=== PATIENT | male | born 1980 | race African-American/Black ===

== ENCOUNTER 2017-05-31 21:34 | Emergency (ER) | payer SELFPAY, OTHER ==
[2017-05-31 22:09] LABS: #Basophils 0.1 thou/uL (0.0-0.2); #Monocytes 0.4 thou/uL (0.11-0.59); #Neutrophils 7.5 thou/uL (1.40-6.50); %Basophils 0.6 % (0.0-1.0); %Eosinophils 0.3 % (0.0-10.0); %Monocytes 4.1 % (0.0-10.0); %Neutrophils 75.1 % (42.0-75.0); Hemoglobin 16.6 g/dL (14.0-18.0); Mean Corpuscular HGB CONC 33.7 g/dL (32.0-36.0); Mean Corpuscular Hemoglobin 31.4 pg (27.0-31.0); Mean Corpuscular Volume 92.9 fl (80.0-94.0); Mean Platelet Volume 8.1 fL (7.4-10.4); Platelet Count 234 thou/uL (130-400); RBC Distribution Width 12.3 % (11.5-14.5); White Blood Cell (WBC) Count 9.9 thou/uL (4.8-10.8)
[2017-05-31 22:27] LABS: ALT (SGPT) 20 U/L (8-55); AST (SGOT) 21 U/L (5-34); Albumin 5.1 g/dL (3.5-5.0); Alkaline Phosphatase 87 U/L (40-150); Anion Gap 17 mmol/L (10-20); BUN (Urea Nitrogen) 12 mg/dL (8.9-20.6); Bilirubin, Total 0.9 mg/dL (0.2-1.2); Calc. Creatinine Clearance 0 mL/min (70-130); Calcium 10.8 mg/dL (7.8-10.44); Carbon Dioxide 25 mmol/L (22-29); Chloride 103 mmol/L (98-107); Estimated GFR-MDRD 58; Globulin 3.6 g/dL (2.4-3.5); Glucose 126 mg/dL (70-105); Lipase 7 U/L (8-78); Potassium 3.7 mmol/L (3.5-5.1); Protein, Total 8.7 g/dL (6.0-8.3); Sodium 141 mmol/L (136-145)
[2017-05-31] MEDS ORDERED: Promethazine HCl 25 MG/ML VIAL ONE (23:02)
== END 2017-06-01 00:06 | disposition home or self-care (01) ==
LOC: ERS 21:34
DX: K29.00 Acute gastritis without bleeding (principal); I10 Essential (primary) hypertension
CPT/HCPCS: 80053; 83690; 85025; 96361; 96374; 96375; J2550

== ENCOUNTER 2017-12-31 15:32 | Emergency (ER) | payer SELFPAY ==
[2017-12-31] MEDS ORDERED: cefTRIAXone\\ROCEPHIN 250 MG VIAL ONE (16:46)
[2017-12-31] MEDS ORDERED: Lidocaine 1% PF 5 ML VIAL ONE (16:46)
[2017-12-31] MEDS ORDERED: Azithromycin 250 MG TAB ONE (16:50)
== END 2017-12-31 17:08 | disposition home or self-care (01) ==
LOC: ERS 15:32
DX: R36.9 Urethral discharge, unspecified (principal); Z20.2 Contact with and (suspected) exposure to infections with a predominantly sexual mode of transmission; I10 Essential (primary) hypertension
CPT/HCPCS: 87491; 87591; 96372; J0696; J2001

== ENCOUNTER 2019-07-29 21:14 | Emergency (ER) | payer SELFPAY ==
[2019-07-29] MEDS ORDERED: Ondansetron ODT 4 MG TAB ONE (21:42)
== END 2019-07-29 22:16 | disposition left against medical advice (07) ==
LOC: ERS 21:14
DX: Z53.21 Procedure and treatment not carried out due to patient leaving prior to being seen by health care provider (principal)
CPT/HCPCS: Q0162

== ENCOUNTER 2020-03-10 12:00 | Observation (INO) | payer SELFPAY ==
[2020-03-10] MEDS ORDERED: Piperacillin/Tazobactam 3.375 GM in Sodium Chloride 0.9% 100 ML IVPB SCH (15:00)
[2020-03-10 15:05] VITALS: BMI 30.4
[2020-03-10] MEDS ORDERED: Ondansetron ODT 4 MG TAB SL PRN (15:15)
[2020-03-10] MEDS ORDERED: Acetaminophen 325 MG TAB PO PRN ×2 (15:15→15:45)
[2020-03-10] MEDS ORDERED: Sodium Chloride 0.9% 1,000 ML IV SCH (15:15)
[2020-03-10] MEDS ORDERED: Ondansetron PF 4 MG/2 ML Vial IVP PRN ×2 (15:15→15:45)
--- NOTE | 2020-03-10 15:22 | PDOC.FPRHP ---
- History of Present Illness Chief Complaint: nausea/vomiting/diarrhea History of Present Illness: 39yo AAM with h/o HTN and THC use presents for intractable nausea and vomiting with associated diarrhea for 1 week. Patient states he ate re-heated leftovers last Friday 03/03, subsequently developed n/v and presented to ED, given zofran and discharged. Since that time he has had intermittent n/v with any trial of PO intake. Endorses chills and diaphoresis with no fever. Endorses 2 episodes of dark diarrhea, non-bloody. Emesis non-bloody. Associated epigastric pain after vomiting. Denies CP, SOB, ASHLEY, vision changes, loss of taste or smell, cough, congestion. States meds in ED improved sxs. No other recent illness or antibiotic use. Patient also states he was a daily to multiple times per day THC user until ons et of sxs. He previously noted that he would smoke after meals thinking this would help "settle his stomach" but instead, lately, would have nausea and vomiting improved with hot showers and worsened with continued THC use. States he takes 6+ showers a day and these help tremendously. ED Course: Presented to ED 03/04 with similar sxs. This presentation given Vanc and Zosyn. Hydralazine 10mg and Labetolol. Given Benadryl, reglan, and asa. 2L NS. 40meq KCL. Sxs improved and able to tolerate PO - Allergies/Adverse Reactions Allergies Allergy/AdvReac Type Severity Reaction Status Date / Time No Known Allergies Allergy Unverified 03/10/20 15:01 - Home Medications Medication Instructions Recorded Confirmed Type Amlodipine [Norvasc] 10 mg PO DAILY 03/10/20 03/10/20 History Hydrochlorothiazide 12.5 mg PO DAILY #30 tab 03/11/20 Rx - History PMHx: HTN PSHx: None FHx: Mother with Diabetes. Father with stomach cancer and stomach ulcers. Social: Daily THC use prior to onset of sxs approx 1 week ago and no use since. No etOH and no other drug use. - Review of Systems General: reports: fever/chills, weight/appetite/sleep changes (decreased appetite). denies: night sweats, fatigue Eyes: denies: vision changes ENT: denies: nasal congestion, rhinorrhea Respiratory: denies: cough, congestion, shortness of breath Cardiovascular: denies: chest pain, edema Gastrointestinal: reports: nausea, vomiting, diarrhea, abdominal pain. denies: GI bleeding Genitourinary: denies: incontinence, dysuria Skin: denies: rashes Musculoskeletal: denies: pain - Vital signs 88kg Selected Entries 03/10/20 14:40 Temperature 98.6 F Pulse Rate 79 Blood Pressure 163/109 H [Semi-Fowlers] Respiratory 18 Rate O2 Sat by Pulse 100 Oximetry Oxygen Delivery Room Air Method - Physical Exam Constitutional: NAD, awake, alert and oriented, well developed, other (finishing lunch, good spirits) HEENT: PERRLA, EOMI, no scleral icterus, MMM Neck: supple, trachea midline Chest: no-tender to palpation Heart: RRR, normal S1/S2, no murmurs/rubs/gallops, no edema Lungs: CTAB, no respiratory distress, good air movement, no rales/rhonchi, no wheezing Abdomen: soft, bowel sounds present, other (mild epigastric and LLQ tenderness to moderate palpation. No rebound or guarding.) Musculoskeletal: normal structure, normal tone Neurological: no focal deficit Skin: no rash/lesions Heme/Lymphatic: no unusual bruising or bleeding Psychiatric: normal mood and affect, good judgment and insight, intact recent and remote memory FMR H&P: Results - Labs Result Diagrams: 03/11/20 04:00 - EKG Interpretation EKG: NSR, no acute T wave or ST Changes - Radiology Interpretation CT scan - abdomen Status: report reviewed by me (No acute findings) FMR H&P: A/P - Problem List (1) Intractable nausea and vomiting Status: Acute Code(s): R11.2 - NAUSEA WITH VOMITING, UNSPECIFIED - Plan 39yo AAM with h/o HTN and THC use presents for intractable nausea and vomiting with associated diarrhea for 1 week. #Nausea/Vomiting/Diarrhea, suspected viral gastroenteritis vs Cannabis hyperemesis syndrome - Onset of sxs 03/03 after eating re-heated leftovers, worsening sxs today - unlikely food bourne illness due to time course - no recent travel or known sick contacts or recent illness/abx use - Minimal PO intake 2/2 sxs x1 week - Tachy in ED, resolved - WBC 11.3, afebrile. UA clean. - UDS + opiates and THC - Lipase negative - low suspicion for pancreatitis - CT abd/pelvis: no acute findings - s/p Vanc and Zosyn in ED, will hold further abx as no sxs of acute bacterial illness - Check procal - Admission COVID screen pending - Tolerating PO intake now, monitor and adv as tolerated - prn Zofran #THC use - daily use prior to onset of sxs - likely contributing to above. Possible cannabis hyperemesis syndrome - Capsacin cream TID to abd - monitor sxs - counseled on cessation, patient understanding and agreeable #Elevated Troponin - Likely 2/2 RANJAN - No heart history or ACS sxs - Trop 0.047, 0.053, 0.042 - EKG no acute changes - Monitor on tele #Hypokalemia 2/2 GI losses - K 2.8, given K in ED - Will recheck BMP and replace as indicated. Check Mag. #RANJAN - Cr 1.83, likely 2/2 poor PO intake - s/p 2L NS in ED, will cont LR @ 120cc/hr #Lactic Acidosis, resolved - LA 2.7 -> 1.8 s/p fluids - 2/2 above #HTN Urgency - h/o chronic HTN - restart home Norvasc - monitor PCP: None Code: Full IVF: LR @ 120cc/hr Diet: Regular VTE: None- low risk Disposition/LOS: Admit to tele obs for n/v/d. Monitor and replace lytes. Sxs management. Anticipate LOS < 48hrs. FMR H&P: Upper Level - Plan Date/Time: 03/10/20 1522 I, [], have evaluated this patient and agree with findings/plan as outlined by it intern resident. Pertinent changes/additions are listed here. Addendum - Attending - Attending Attestation Date/Time: 03/11/20 1643 I personally evaluated the patient and discussed the management with Dr. Mujica. I agree with the History, Examination, Assessment and Plan documented above with any addition or exceptions noted below. Seem to be a clear case of cannabinoid hyperemesis. Expectant management. Monitor creatinine. Has had no chest pain or shortness of breath. Regularly runs and lifts weights without issue.
[2020-03-10] MEDS ORDERED: Ondansetron ODT 4 MG TAB PO PRN (15:45)
[2020-03-10] MEDS ORDERED: Calcium Carbonate 500 MG ChewTAB PO PRN (15:45)
[2020-03-10] MEDS ORDERED: Amlodipine 10 MG TAB PO SCH (16:00)
[2020-03-10] MEDS: Lactated Ringer's 1,000 ML IV SCH (16:17)
[2020-03-10 17:20] LABS: Anion Gap 12 mmol/L (10-20); BUN (Urea Nitrogen) 14 mg/dL (8.9-20.6); Calc. Creatinine Clearance 104 mL/min (70-130); Calcium 8.9 mg/dL (7.8-10.44); Carbon Dioxide 26 mmol/L (22-29); Chloride 104 mmol/L (98-107); Glucose 121 mg/dL (70-105); Potassium 3.2 mmol/L (3.5-5.1); Sodium 139 mmol/L (136-145)
[2020-03-10] MEDS ORDERED: Potassium Chloride 20 MEQ TAB PO SCH (18:15)
[2020-03-10] MEDS: Capsaicin 0.025% Cream 60 gm Tube TOP SCH (23:18)
[2020-03-11] MEDS: Lactated Ringer's 1,000 ML IV SCH (01:12)
[2020-03-11 04:44] LABS: Anion Gap 12 mmol/L (10-20); BUN (Urea Nitrogen) 11 mg/dL (8.9-20.6); Calc. Creatinine Clearance 113 mL/min (70-130); Calcium 8.8 mg/dL (7.8-10.44); Carbon Dioxide 26 mmol/L (22-29); Chloride 107 mmol/L (98-107); Glucose 91 mg/dL (70-105); Potassium 3.7 mmol/L (3.5-5.1); Sodium 141 mmol/L (136-145)
--- NOTE | 2020-03-11 06:21 | PDOC.FM ---
- Subjective Subjective: Much improved this morning. Tolerating PO well without any n/v. Did have a 1-2 more episodes of loose stools, nonbloody. Hot showers still relieve mild nausea. Eager for discharge home. No fever/chills, CP, SOB, abd pain. - Objective MAR Reviewed: Yes Vital Signs & Weight: Vital Signs (12 hours) Temp Pulse Resp BP Pulse Ox 03/10/20 20:00 99.0 F 98 20 164/79 H 97 Weight Weight 88.269 kg Result Diagrams: 03/11/20 04:00 Phys Exam - Physical Examination Constitutional: NAD (sitting in bed, good spirits) HEENT: moist MMs Neck: supple Respiratory: no wheezing, no rales, no rhonchi, clear to auscultation bilateral Cardiovascular: RRR, no significant murmur Gastrointestinal: soft, non-tender, no distention, positive bowel sounds Musculoskeletal: no edema Neurological: moves all 4 limbs Psychiatric: normal affect, A&O x 3 Skin: no rash Dx/Plan (1) Intractable nausea and vomiting Code(s): R11.2 - NAUSEA WITH VOMITING, UNSPECIFIED Status: Acute - Plan Plan: 39yo AAM with h/o HTN and THC use presents for intractable nausea and vomiting with associated diarrhea for 1 week. #Cannabis hyperemesis syndrome - Onset of sxs 03/03 after eating re-heated leftovers, worsening sxs today - unlikely food bourne illness due to time course - no recent travel or known sick contacts or recent illness/abx use - Minimal PO intake 2/2 sxs x1 week - Tachy in ED, resolved - WBC 11.3, afebrile. UA clean. Procal negative. - UDS + opiates and THC - Lipase negative - low suspicion for pancreatitis - CT abd/pelvis: no acute findings - s/p Vanc and Zosyn in ED, will hold further abx as no sxs of acute bacterial illness - Admission COVID screen pending - Tolerating PO intake now, no further sxs - daily THC use prior to onset of sxs - counseled on cessation, patient understanding and agreeable #Elevated Troponin, stable - Likely 2/2 RANJAN - No heart history or ACS sxs - Trop 0.047, 0.053, 0.042 - EKG no acute changes - No acute events on tele #Hypokalemia 2/2 GI losses, resolved - replaced. Mg WNL. #RANJAN, resolved - Cr 1.83 -> 1.12, likely 2/2 poor PO intake - s/p IVF, will d/c this AM #Lactic Acidosis, resolved - LA 2.7 -> 1.8 s/p fluids - 2/2 above #HTN Urgency - h/o chronic HTN - restart home Norvasc, addition of HCTZ as BP still elevated - Will need continued Outpt follow up and to establish with PCP - plans to see [facility] PCP: None Code: Full IVF: SL Diet: Regular VTE: None- low risk Disposition/LOS: Admitted to tele obs for Cannabis hyperemesis syndrome. Sxs resolved. Metabolic derangements resolved. Anticipate discharge today Addendum - Attending - Attending Attestation Date/Time: 03/11/20 [id number] I personally evaluated the patient and discussed the management with Dr. Mujica I agree with the History, Examination, Assessment and Plan documented above with any addition or exceptions noted below - Patient feeling much better. Tolerating diet with no difficulties. Afebrile VSS A/P: 1) Cannabis hyperemesis syndrome- improved. 2) HTN- started on BP meds; will need close follow-up. Stable for discharge,
[2020-03-11] MEDS ORDERED: Amlodipine 10 MG TAB PO SCH (09:00)
[2020-03-11] MEDS ORDERED: Hydrochlorothiazide 25 MG TAB PO SCH (09:00)
[2020-03-11] MEDS: Capsaicin 0.025% Cream 60 gm Tube TOP SCH (09:12)
[2020-03-11 11:02] VITALS: BP 162/97; TEMP 98.4
[2020-03-11 13:43] LABS: SARS-CoV-2 PCR by NAA Not Detected (NotDetected)
[2020-03-11] MEDS ORDERED: FLU VACC QS2020-21(6MOS UP)/PF 60 MCG/0.5 ML SYRINGE IM ONE (15:45)
--- NOTE | 2020-03-12 04:08 | DIS ---
DATE OF ADMISSION: 03/10/2020 DATE OF DISCHARGE: 03/11/2020 RESIDENT: Nitesh Mujica MD ADMITTING ATTENDING: Carlos Pedersen MD DISCHARGE ATTENDING: Jaz Gallo MD CONSULTS: None. PROCEDURES: Abdomen and pelvis CT performed on 03/09/2020, demonstrating no acute findings of the abdomen or pelvis. PRIMARY DIAGNOSES: 1. Cannabinoid hyperemesis syndrome. 2. Elevated troponin. 3. Acute kidney injury, resolved. SECONDARY DIAGNOSES: 1. Hypokalemia secondary to gastrointestinal losses, resolved. 2. Lactic acidosis, resolved. 3. Hypertensive urgency, resolved. 4. Chronic hypertension. DISCHARGE MEDICATIONS: 1. Norvasc 10 mg p.o. daily. 2. Hydrochlorothiazide 12.5 mg p.o. daily. HISTORY OF PRESENT ILLNESS/HOSPITAL COURSE: The patient is a pleasant 39-year-old male with past medical history of hypertension and daily THC use, who presented for intractable nausea and vomiting with associated diarrhea for 1 week. He was seen in the emergency department approximately a week ago after eating reheated leftovers and thought he had food poisoning. He was given some Zofran and ultimately discharged home. At that time, he had intermittent nausea and vomiting with a trial p.o. intake. He endorsed chills and diaphoresis with no fever. He had a few episodes of dark diarrhea that was nonbloody and his emesis was also nonbloody. He also had associated epigastric pain post emesis. He denied any chest pain, shortness of breath, headaches, vision changes, loss of taste or smell, cough, or congestion. He also states he smokes marijuana daily and had previously noted that he would smoke after meals to "settle his stomach," but instead of late would have worse nausea and vomiting that would improve with hot showers and worsen with continued marijuana use. He states he takes approximately six or more showers a day and these helped initially. In the emergency department, he was given vancomycin, Zosyn, hydralazine, labetalol, Benadryl, Reglan, aspirin, fluid bolus, and had improvement of his symptoms and was ultimately directly admitted to [facility] for further evaluation and management. Once on the floor, the patient had no return of nausea, vomiting, or abdominal pain. His white blood cell count and procal were negative and no evidence of bacterial illness and thus no antibiotics were continued. Lipase was negative and thus low suspicion for pancreatitis. His UDS was positive for opiates and THC. Tachycardia resolved. COVID test was negative. Overnight, he tolerated p.o. well without any return of symptoms, taking multiple hot showers, but continued to improve. The patient was counseled extensively on cessation of marijuana use as his presentation was very consistent with cannabinoid hyperemesis syndrome. The patient voiced agreement and understanding and stated that he will no longer use marijuana. The patient also had elevated troponin, likely secondary to his RANJAN. His troponins were trended and stable. He was monitored on telemetry without any acute changes and EKG showed normal sinus rhythm without any acute ST or T-wave changes. He also had a mild hypokalemia that was replenished and RANJAN, that resolved with IV fluids. He also had a mild lactic acidosis that resolved with IV fluids. The patient had hypertensive urgency in the setting of chronic hypertension. He was given p.r.n. medications and additional hydrochlorothiazide with improvement in his blood pressure. The patient was instructed that he need to follow with his primary care physician for continued management of his blood pressure. At the time of discharge, the patient was ambulatory, tolerating p.o. well without any nausea, vomiting, or abdominal pain. He was very eager to be discharged home. The patient was again counseled extensively on cessation from marijuana use and the patient voiced agreement and understanding of discharge plan and appropriate followup. All questions were answered. The patient was then discharged home. DISPOSITION: Stable. DISCHARGE INSTRUCTIONS: 1. Location: Home. 2. Diet: Regular as tolerated. 3. Activity: As tolerated. 4. Followup: The patient is to follow up with primary care physician within one week of discharge. Job ID: [id number]
== END 2020-03-11 11:45 | disposition home or self-care (01) ==
LOC: 2NO 12:00 → INTOOBSV 12:00
PROVIDERS: ADMIT Emergency Medicine; ATTEND Emergency Medicine
DX: R11.2 Nausea with vomiting, unspecified (principal); F12.90 Cannabis use, unspecified, uncomplicated; R77.8 Other specified abnormalities of plasma proteins; N17.9 Acute kidney failure, unspecified; R19.7 Diarrhea, unspecified; E87.6 Hypokalemia; E87.2 Acidosis; I16.0 Hypertensive urgency; I10 Essential (primary) hypertension; Z79.899 Other long term (current) drug therapy; Z20.822 Contact with and (suspected) exposure to COVID-19
CPT/HCPCS: 36415; 80048; 83735; 84145; 84443; 87635; G0378; U0003; U0005

== ENCOUNTER 2020-12-23 02:18 | Emergency (ER) | payer SELFPAY | END 2020-12-23 04:30 | disposition home or self-care (01) | LOC: ERS 02:18 | DX: R10.13 Epigastric pain (principal); R11.2 Nausea with vomiting, unspecified; I10 Essential (primary) hypertension | CPT/HCPCS: 76705 ==

== ENCOUNTER 2021-04-23 14:00 | Emergency (ER) | payer OTHER, SELFPAY ==
[2021-04-23] MEDS ORDERED: Ondansetron PF 4 MG/2 ML Vial ONE (14:47)
[2021-04-23] MEDS ORDERED: Morphine 4 MG/ML VIAL ONE (14:47)
[2021-04-23 14:57] LABS: Hemoglobin 15.7 g/dL (14.0-18.0); Mean Corpuscular Hemoglobin 31.8 pg (27.0-31.0); Mean Corpuscular Volume 93.6 fL (78.0-98.0); Mean Platelet Volume 8.2 fL (7.4-10.4); Platelet Count 273 thou/uL (130-400); RBC Distribution Width 12.8 % (11.5-14.5); Red Blood Cell (RBC) Count 4.93 mill/uL (4.70-6.10); White Blood Cell (WBC) Count 8.4 thou/uL (4.8-10.8)
[2021-04-23 15:05] LABS: Prothrombin Time 12.8 sec (12.0-14.7)
[2021-04-23 15:06] LABS: PTT 32.6 sec (22.9-36.1)
[2021-04-23 15:11] LABS: Eosinophils 6 % (0-10); Lymphocytes 51 % (21-51); MDiff Complete? YES; Monocytes 4 % (0-10); Neutrophil 35 % (42-75); Platelet Morphology Comment Appears Adequate; RBC Morphology Normal; Reactive Lymphocytes 4 % (0-10)
[2021-04-23 15:16] LABS: ALT (SGPT) 22 U/L (8-55); AST (SGOT) 22 U/L (5-34); Albumin 4.5 g/dL (3.5-5.0); Alkaline Phosphatase 99 U/L (40-110); Anion Gap 13 mmol/L (10-20); BUN (Urea Nitrogen) 15 mg/dL (8.9-20.6); Bilirubin, Total 0.5 mg/dL (0.2-1.2); Calc. Creatinine Clearance 0 mL/min (70-130); Calcium 9.5 mg/dL (7.8-10.44); Carbon Dioxide 22 mmol/L (22-29); Chloride 106 mmol/L (98-107); Globulin 3.5 g/dL (2.4-3.5); Glucose 83 mg/dL (70-105); Lipase 45 U/L (8-78); Potassium 3.8 mmol/L (3.5-5.1); Sodium 137 mmol/L (136-145)
== END 2021-04-23 16:04 | disposition home or self-care (01) ==
LOC: ERS 14:00
DX: S16.1XXA Strain of muscle, fascia and tendon at neck level, initial encounter (principal); S43.402A Unspecified sprain of left shoulder joint, initial encounter; S09.90XA Unspecified injury of head, initial encounter; I10 Essential (primary) hypertension; F17.210 Nicotine dependence, cigarettes, uncomplicated; Z79.899 Other long term (current) drug therapy; V43.52XA Car driver injured in collision with other type car in traffic accident, initial encounter
CPT/HCPCS: 70450; 71045; 72125; 80053; 83690; 85025; 85610; 85730; 96374; 96375; J2270; J2405